=== PATIENT | male | born 1995 | race Caucasian/White ===

== ENCOUNTER 2025-08-30 14:52 | Emergency (ER) | payer SELFPAY ==
[2025-08-30 14:59] VITALS: BP 136/84; PULSE 75; RESP 16; TEMP 36.4; O2SAT 100
--- NOTE | 2025-08-30 14:59 | ED.URI ---
HPI - URI/Sore Throat General Chief Complaint: Upper Respiratory Infection Stated Complaint: Sinus Infection Time Seen by Provider: 08/30/25 14:59 Source: patient Mode of arrival: ambulatory Limitations: no limitations History of Present Illness HPI Narrative: 30-year-old male presents with complaint of sinus congestion, sinus pressure, postnasal drainage, throat irritation for the past week. For the past 2-3 days symptoms worse. Pain to bilateral ears, worse to left ear. Taking Benadryl, Sudafed. And DayQuil. No chest pain or shortness breath. All systems reviewed and negative except as noted above. Related Data Allergies Allergy/AdvReac Type Severity Reaction Status Date / Time No Known Allergies Allergy Verified 08/30/25 14:58 PMF Comments At time of signature, agree with nursing past medical, surgical, social and family history. There is no relevant family history pertinent to the presenting complaint. Exam Narrative: GENERAL: This is a well-nourished, well-developed patient, in no apparent distress. HEAD: normocephalic, atraumatic. EYES: PERRL. Sclera clear/white. Vision is grossly intact. EARS: External ears normal, auditory canals clear and without drainage, Clear fluid to right TM. Left TM is erythematous, injected, purulent yellow fluid. No perforation bilaterally. Hearing grossly intact. NOSE: External nose normal with Mild congestion, clear nasal drainage, erythema to bilateral nares. THROAT: Mucous membranes moist, Mild erythema postnasal drainage. No swelling or exudates. NECK: Neck supple, non-tender without lymphadenopathy, masses or thyromegaly. CARDIOVASCULAR: Regular rate and rhythm without murmurs, gallops, or rubs. RESPIRATORY: Clear to auscultation. Breath sounds equal bilaterally. No wheezes, rales, or rhonchi. SKIN: warm, Dry, intact with no suspicious lesions or rash, good texture and turgor. NEURO: awake, alert, and oriented to person, place and time. There were no obvious focal neurologic abnormalities. EXTREMITIES: No joint tenderness, effusion, or edema noted. Course Course Level of Care: Express Care Visit Vital Signs Vital signs: Reviewed MDM - URI/Sore Throat MDM Narrative Medical decision making narrative: will treat left otitis media with Augmentin. Recommend patient continue Sudafed start Flonase to treat sinus symptoms. Differential Diagnosis Differential diagnosis: Likely upper respiratory infection, otitis media, sinusitis and viral infection Discharge Plan Discharge Clinical Impression: Acute left otitis media, Acute sinusitis Patient Disposition: Home Condition: Stable Instructions: Antibiotic Form, Ear Infection in Children (ED) Additional Instructions: Take antibiotic as prescribed until gone. Take ibuprofen or Tylenol every 6-8 hours as needed for pain. Drink at least 64 oz of water a day. See your doctor symptoms are not improving. Patient Language: Divehi Prescriptions: New amoxicillin-pot clavulanate 875-125 mg tablet 1 tablet PO Q12H 10 Days Qty: 20 0RF fluticasone propionate [Flonase Allergy Relief] 50 mcg/actuation spray,suspension 1 spray intranasal BID Qty: 16 0RF Rx Instructions: administer into each nostril Follow-up/Referrals: PHYSICIAN,BIODIESEL ENGINE SPECIALIST [Primary Care Provider, Internal Medicine] Time of Disposition: 15:08
--- OUTSIDE RECORDS SUMMARY | 2025-08-30 15:44 | XMS_ITS | Patient Health Record ---
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 Role Phone Lesly Laura Primary Care Provider Allergies No Known Allergies Reason For Referral No Information Social History Tobacco Use: Social History Observation Description Date Details (start date - stop date) Never Smoker NA - NA Social History Depression Screening Social Info Question Answer Notes PHQ-9 Little interest or pleasure in doing thin gs Not at all Feeling down, depressed, or hopeless Not at all Trouble falling or staying asleep, or sleeping t oo much Not at all Feeling tired or having little energy Not at all Poor appetite or overeating Not at all Feeling bad about yourself, or that you are a failure, or have let yourself or your family down Not at all Trouble concentrating on thi ngs, such as reading the newspaper or watching television Not at all Moving or speaking so slowly that other people could have noticed. Or the opposite ? being so fidgety or restless that you have been moving around a lot more than usual Not at all Thoughts that you would be b arsh off , or of hurting yourself in some way Not at all Total Score 0 Drugs/Alcohol: Social Info Question Answer Notes Alcohol Screen (Audit-C) Did you have a drink containing alcohol in the past year? No Points 0 Interpretation Negative Tobacco Use: Social Info Question Answer Notes xTobacco Use/Smoking Are you a nonsmoker Section Notes: 01-14-23 PHQ9 Plan Of Treatment No Information
--- OUTSIDE RECORDS SUMMARY | 2025-08-30 15:44 | XMS_ITS | Patient Health Record ---
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 Role Phone CLAUDIA SORTO Unavailable [phone] Reason For Referral No Information Problems Problem Type SNOMED Code ICD Code Onset Dates Problem Status W/U Status Risk Notes Problem Testicular hypofunction (332330621) Testicular hypofunction (E29.1) Active confirmed Plan Of Treatment Pending Test Test Name Order Date TESTOSTERONE, FREE, BIOVAILA BLE AND TOTAL, MALES (ADULT), IMMUNOASSAY ([id number]) 08/22/2021 Insurance Providers Payer Name Payer Address Payer Phone Subscriber Number Group Number Insured Name Patient Relationship to Insured Coverage Start Date Coverage End Date SELF PAY [address] [place] [address] [place] [address] LADI STYLES Self - patient is the insured
== END 2025-08-30 15:10 | disposition home or self-care (01) ==
PROVIDERS: Emergency Provider Nurse Practitioner Family
DX: H66.92 Otitis media, unspecified, left ear (principal); J01.90 Acute sinusitis, unspecified
CPT/HCPCS: 99203; G0463